=== PATIENT | male | born 1960 ===

== ENCOUNTER 2023-05-10 05:11 | Day surgery (SDC) | payer OTHER | END 2023-05-10 10:35 | disposition home or self-care (01) | LOC: AMB-ENDOS 05:11 | PROVIDERS: ATTEND Colon & Rectal Surgery | DX: D12.5 Benign neoplasm of sigmoid colon (principal); D12.8 Benign neoplasm of rectum; Z20.822 Contact with and (suspected) exposure to COVID-19; R19.5 Other fecal abnormalities; K64.0 First degree hemorrhoids ==